=== PATIENT | female | born 1995 | race Caucasian/White ===

== ENCOUNTER 2023-12-17 14:13 | Emergency (ER) | payer BC, SELFPAY ==
[2023-12-17 14:17] VITALS: BP 111/63; PULSE 75; RESP 16; TEMP 36.5; O2SAT 99; BMI 34.1
--- NOTE | 2023-12-17 14:31 | W.ED.ABDPA2 ---
HPI - Abdominal Pain General: Chief Complaint: Abdominal Pain Stated Complaint: RIGHT ABD PAIN Time Seen by Provider: 12/17/23 14:28 History of Present Illness: Patient presents to the ER with complaints of right upper quadrant and left upper quadrant abdominal pain. This radiating into her back. Patient is having nausea vomiting and diarrhea for the last 3 days. The pain just darted today around 130. Patient is sharp stabbing in nature makes the patient feel she needs to vomit and then that she gets lightheaded and feels like she got a pass out. Patient's fidanelle? has similar nausea vomiting for a day or 2 but he is improved currently. Related Data Date of Last Menstrual Period: 12/15/23 Previous Rx's Medication Instructions Recorded ciprofloxacin HCl 500 mg tablet 500 mg PO Q12H #20 tabs 12/17/23 Allergies Allergy/AdvReac Type Severity Reaction Status Date / Time Penicillins Allergy ALGY-Rash Verified 12/17/23 14:24 Review of Systems General: Reports: 10 or more systems reviewed and unremarkable except in HPI and below PFS ED Female Reproductive History: Date of last menstrual period: 12/15/23 Physical Exam Const: COMMON NORMALS: no acute distress, average body habitus, patient oriented x3, no limitations, healthy appearing, alert and well nourished HENMT: COMMON NORMALS: normocephalic, atraumatic, hearing grossly normal bilaterally, external ears normal, Normal external nose present and moist oral mucous membranes HEAD & SCALP: normocephalic and atraumatic NOSE: Normal external nose present EXTERNAL EAR: Yes external ears normal Neck/C-Spine: COMMON NORMALS: no JVD Chest: COMMONS NORMALS: normal inspection of the chest and normal palpation of entire chest wall Resp: COMMON NORMALS: normal respiratory effort, No retractions, No use of accessory muscles and clear to auscultation bilaterally AUSCULTATION: clear to auscultation bilaterally Cardio: COMMON NORMALS: no JVD, regular rate, regular rhythm, S1 normal heart sound present, S2 normal heart sound present, No gallops present (Cardio), No clicks present (Cardio), No murmurs present (Cardio) and No rub (Cardio) RATE: regular rate RHYTHM: regular rhythm HEART SOUNDS: S1 normal heart sound present and S2 normal heart sound present GI: COMMON NORMALS: Normal to inspection, nondistended, normoactive bowel sounds present, Soft to palpation, non-tender, No hepatosplenomegaly present and no masses PALPATION: Yes Soft to palpation and Yes No hepatosplenomegaly present Neuro: COMMON NORMALS: patient oriented x3 SENSORIUM/ORIENTATION: Yes alert Course Vital Signs: Vital signs: Vital Signs Temperature 97.7 F 12/17/23 14:17 Pulse Rate 78 12/17/23 17:05 Respiratory Rate 16 12/17/23 14:17 Blood Pressure 128/98 12/17/23 17:05 Pulse Oximetry 98 12/17/23 17:05 Oxygen Delivery Me thod Room Air 12/17/23 14:17 MDM - Abdominal Pain Medical Decision Making Patient lab work included CBC CMP lipase, urinalysis, hCG, all which was essentially negative urine analysis possibly showed mild urinary tract infection however was not the best collected specimen, CT scan the abdomen pelvis showed no acute findings. Patient was given Toradol in her IV in the ER which helped her pain. Patient be prescribed Cipro and referred back to her family doctor for further evaluation testing. Medical Records I reviewed the patient's medical records. Lab Data I reviewed the patient's lab results. 12/17/23 15:18 12/17/23 15:18 Labs/Radiology: Radiology Impressions Abdomen/Pelvis CT 12/17/23 16:23 IMPRESSION: No acute findings. Laboratory Results WBC 8.46 10^3/uL (3.29-11.43) 12/17/23 15:18 RBC 4.24 10^6/uL (3.85-5.65) 12/17/23 15:18 Hgb 12.30 g/dL (11.27-16.99) 12/17/23 15:18 Hct 39.2 % (36-47) 12/17/23 15:18 MCV 92.5 fl (85-98) 12/17/23 15:18 MCH 29.0 pg (27-33) 12/17/23 15:18 MCHC 31.4 g/dL (30-55) 12/17/23 15:18 RDW 12.8 % (12.1-15.1) 12/17/23 15:18 Plt Count 222 10^3/cmm (157-399) 12/17/23 15:18 MPV 10.1 fL (7.4-10.4) 12/17/23 15:18 Neut % (Auto) 82.2 % 12/17/23 15:18 Lymph % (Auto) 8.2 % 12/17/23 15:18 [place] % (Auto) 7.1 % 12/17/23 15:18 Eos % (Auto) 1.9 % 12/17/23 15:18 Baso % (Auto) 0.5 % 12/17/23 15:18 Neut # (Auto) 6.96 10^3/uL (1.8-7.7) 12/17/23 15:18 Lymph # (Auto) 0.7 10^3/uL (0.8-4.8) L 12/17/23 15:18 [place] # (Auto) 0.6 10^3/uL (0.2-0.9) 12/17/23 15:18 Eos # (Auto) 0.2 10^3/uL (0.0-0.8) 12/17/23 15:18 Baso # (Auto) 0.0 10^3/uL (0.0-0.1) 12/17/23 15:18 Nucleated RBC % (auto) 0 % 12/17/23 15:18 Nucleated RBCs # 0.0 /100WBC 12/17/23 15:18 Sodium 139 mmol/L (136-145) 12/17/23 15:18 Potassium 4.3 mmol/L (3.5-5.1) 12/17/23 15:18 Chloride 104 mmol/L (98-107) 12/17/23 15:18 Carbon Dioxide 23 mmol/L (22-29) 12/17/23 15:18 Anion Gap 16.3 (5-19) 12/17/23 15:18 BUN 18 mg/dL (6-20) 12/17/23 15:18 Creatinine 0.8 mg/dL (0.5-0.9) 12/17/23 15:18 GFR Calculation 86.0 mL/min (90-130) L 12/17/23 15:18 Glucose 87 mg/dL (65-115) 12/17/23 15:18 Calculated Osmolality 289 mOsm/kg (285-295) 12/17/23 15:18 Calcium 8.9 mg/dL (8.5-10.5) 12/17/23 15:18 Magnesium 2.0 mg/dL (1.7-2.3) 12/17/23 15:18 Total Bilirubin 0.4 mg/dL (0.15-1.2) 12/17/23 15:18 AST 39 U/L (0-32) H 12/17/23 15:18 ALT 22 U/L (0-33) 12/17/23 15:18 Alkaline Phosphatase 72 U/L (35-105) 12/17/23 15:18 Total Protein 7.9 g/dL (6.6-8.7) 12/17/23 15:18 Albumin 4.7 g/dL (3.5-5.2) 12/17/23 15:18 Globulin 3.2 g/dL (1.3-4.6) 12/17/23 15:18 Lipase 16 U/L (13-60) 12/17/23 15:18 HCG, Qual Negative (Negative) 12/17/23 15:37 Urine Color Yellow (Yellow) 12/17/23 15:37 Urine Appearance Cloudy (CLEAR) A 12/17/23 15:37 Urine pH 6.0 (5-7) 12/17/23 15:37 Ur Specific [place] 1.030 (1.005-1.030) 12/17/23 15:37 Urine Protein 1+ (Negative) A 12/17/23 15:37 Urine Glucose (UA) Negative (Normal) 12/17/23 15:37 Urine Ketones Trace (Negative) 12/17/23 15:37 Urine Blood 3+ (Negative) A 12/17/23 15:37 Urine Nitrate Negative (Negative) 12/17/23 15:37 Urine Bilirubin Negative (Negative) 12/17/23 15:37 Urine Urobilinogen 1.0 mg/dL (Negative) 12/17/23 15:37 Ur Leukocyte Esterase 1+ (Negative) A 12/17/23 15:37 Urine RBC 15-25 /hpf (0-2) H 12/17/23 15:37 Urine WBC 10-15 /hpf (0-5) H 12/17/23 15:37 Ur Squamous Epith Cells 15-25 /hpf (0-5) H 12/17/23 15:37 Ur Transition Epith Cell 0-4 /hpf 12/17/23 15:37 Ur Renal Epithelial Cell 0-4 /hpf 12/17/23 15:37 Calcium Oxalate Crystal 10-15 /hpf H 12/17/23 15:37 Amorphous Sediment Not Reportable 12/17/23 15:37 Urine Bacteria 2+ /hpf (NONE) H 12/17/23 15:37 Hyaline Casts 0-4 /lpf H 12/17/23 15:37 Urine Mucus 1+ /hpf 12/17/23 15:37 All radiology interpretation(s) finalized by discharge Discharge Plan Discharge Patient Disposition: Home Clinical Impression: Abdominal pain Qualifiers: Abdominal location: upper abdomen, unspecified Qualified Code(s): R10.10 - Upper abdominal pain, unspecified Urinary tract infection Qualifiers: Urinary tract infection type: acute cystitis Hematuria presence: with hematuria Qualified Code(s): N30.01 - Acute cystitis with hematuria Condition: Stable Prescriptions: New ciprofloxacin HCl 500 mg tablet 500 mg PO Q12H Qty: 20 0RF Discharge Orders: Discharge ED (Routine); Ordered 12/17/23 Ordered By: Jamie Brian Patient Instructions: Abdominal Pain (ED), Urinary Tract Infection - Women Activity Restrictions/Additional Instructions: Your evaluation ER that included lab work urinalysis and renal stone protocol CT scan did not show any acute cause of your upper abdominal pain. Your urine did show you may have signs of infection and thus you are prescribed antibiotics. Please follow-up with your family practice physician within next 7 to 10 days for further evaluation and testing Coding Level of Care Code ED [employer] for Shannan Page
[2023-12-17] MEDS: ondansetron 2 mg/ML SDV 2 mL 4 MG IVP (15:22)
[2023-12-17 15:25] LABS: Basophils % 0.5 %; Eosinophils # 0.2 10^3/uL (0.0-0.8); Eosinophils % 1.9 %; Hematocrit 39.2 % (36-47); Lymphocytes # 0.7 10^3/uL (0.8-4.8); Lymphocytes % 8.2 %; Mean Corpuscular HGB Conc 31.4 g/dL (30-55); Mean Corpuscular Volume 92.5 fl (85-98); Mean Platelet Volume 10.1 fL (7.4-10.4); Monocytes # 0.6 10^3/uL (0.2-0.9); Monocytes % 7.1 %; Neutrophils # 6.96 10^3/uL (1.8-7.7); Neutrophils % 82.2 %; Nucleated Red Blood Cells % 0 %; Platelet Count 222 10^3/cmm (157-399); Red Blood Count 4.24 10^6/uL (3.85-5.65); Red Cell Distribution Width 12.8 % (12.1-15.1); White Blood Count 8.46 10^3/uL (3.29-11.43)
[2023-12-17 15:43] LABS: Alanine Aminotransferase 22 U/L (0-33); Albumin Level 4.7 g/dL (3.5-5.2); Alkaline Phosphatase 72 U/L (35-105); Anion Gap 16.3 (5-19); Aspartate Amino Transferase 39 U/L (0-32); Blood Urea Nitrogen 18 mg/dL (6-20); Calcium 8.9 mg/dL (8.5-10.5); Carbon Dioxide 23 mmol/L (22-29); Chloride 104 mmol/L (98-107); Creatinine Clr Calc Pharmacy 119.0526; Globulin 3.2 g/dL (1.3-4.6); Glucose 87 mg/dL (65-115); Lipase 16 U/L (13-60); Osmolality Calculated 289 mOsm/kg (285-295); Potassium 4.3 mmol/L (3.5-5.1); Sodium 139 mmol/L (136-145); Total Bilirubin 0.4 mg/dL (0.15-1.2); Total Protein 7.9 g/dL (6.6-8.7)
[2023-12-17 15:48] LABS: HCG Qualitative Urine. Negative (Negative)
[2023-12-17 16:03] LABS: Bilirubin Urine Negative (Negative); Blood Urine 3+ (Negative); Glucose Urine UA Negative (Normal); Ketones Urine Trace (Negative); Leukocyte Esterase Urine 1+ (Negative); Nitrate Urine Negative (Negative); Protein Urine 1+ (Negative); Urine Appearance Cloudy (CLEAR); Urine Color Yellow (Yellow)
[2023-12-17 16:18] LABS: UA Manual Slide Review YES; UA Slide Review UA Slide Review Perf
[2023-12-17 16:21] LABS: Add Urine Microscopic? YES; Bacteria Urine 2+ /hpf; Mucus Urine 1+ /hpf; RBC Urine 15-25 /hpf (0-2); Renal Epithelial Cells Urine 0-4 /hpf; Squamous Epithelial Cell Urine 15-25 /hpf (0-5); Transitional Epi Cells Urine 0-4 /hpf
[2023-12-17 16:22] LABS: Add Urine Culture? Yes; Hyaline Casts Urine 0-4 /lpf
--- NOTE | 2023-12-17 16:23 | CTR_ITS ---
PROCEDURE INFORMATION: Exam: CT Abdomen And Pelvis Without Contrast Exam date and time: 12/17/2023 4:33 PM Age: 28 years old Clinical indication: Abdominal pain; Flank; Right; Additional info: Upper abd pain, hematuria, TECHNIQUE: Imaging protocol: Computed tomography of the abdomen and pelvis without contrast. Radiation optimization: All CT scans at this facility use at least one of these dose optimization techniques: automated exposure control; mA and/or kV adjustment per patient size (includes targeted exams where dose is matched to clinical indication); or iterative reconstruction. COMPARISON: No relevant prior studies available. RADIATION DOSE METRICS: Total DLP (mGy-cm): 676.66 FINDINGS: Lungs: Lung bases are clear. No pleural effusion. Liver: Normal. No mass. Gallbladder and biliary ducts: The gallbladder has been resected. Pancreas: Normal. No ductal dilation. Spleen: Normal. No splenomegaly. Adrenal glands: Normal. No mass. Kidneys and ureters: Normal. No hydronephrosis. Stomach and bowel: Unremarkable. No obstruction. No mucosal thickening. Appendix: The appendix is clearly identified and is unremarkable. Intraperitoneal space: Unremarkable. No free air. No significant fluid collection. Vasculature: Unremarkable. No abdominal aortic aneurysm. Lymph nodes: Unremarkable. No enlarged lymph nodes. Urinary bladder: Unremarkable as visualized. Reproductive: There is an intrauterine device properly positioned within the uterus. Bones/joints: Unremarkable. No acute fracture. Soft tissues: Unremarkable. CT/CT kidney stone [id number] IMPRESSION: No acute findings.
[2023-12-17] MEDS: ketorolac 30 mg/mL INJ IVP (16:29)
[2023-12-17 17:05] VITALS: BP 128/98; PULSE 78; O2SAT 98
[2023-12-17] MEDS: ciprofloxacin 500 mg Tablet PO (17:17)
[2023-12-17 17:22] VITALS: BP 108/58; PULSE 83; O2SAT 98
== END 2023-12-17 17:25 | disposition home or self-care (01) ==
PROVIDERS: Emergency Provider Emergency Medicine
DX: N30.01 Acute cystitis with hematuria (principal); R10.10 Upper abdominal pain, unspecified
CPT/HCPCS: 74176; 80053; 81001; 81025; 83690; 83735; 85025; 87086; 96374; 96375; 99285; J1885; J2405

== ENCOUNTER 2024-07-18 13:42 | Emergency (ER) | payer OTHER, SELFPAY ==
[2024-07-18 13:47] VITALS: BP 116/73; PULSE 93; RESP 16; TEMP 36.9; O2SAT 100; BMI 36.1
--- NOTE | 2024-07-18 13:48 | ECG_ITS ---
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 Measurements Intervals [place] Rate: 91 P: 10 W[place]: 164 QRS: 40 QRSD: 103 T: 0 QT: 335 QTc: 413 Interpretive Statements SINUS RHYTHM LOW QRS VOLTAGE IN PRECORDIAL LEADS [QRS DEFLECTION < 1.0 mV IN CHEST LEADS] NONSPECIFIC T-WAVE ABNORMALITY No previous ECG available for comparison Electronically Signed On 07-20-2024 11:39:24 CDT by Mario Pearl M.D. [email or web address]
--- NOTE | 2024-07-18 13:48 | XRR_ITS ---
PROCEDURE INFORMATION: Exam: XR Chest Exam date and time: 07/18/2024 2:15 PM Age: 29 years old Clinical indication: Cough and dyspnea; Additional info: Dyspnea/cough TECHNIQUE: Imaging protocol: Radiologic exam of the chest. Views: 1 view. COMPARISON: CT kidney stone [id number] 12/17/2023 4:33 PM FINDINGS: Lungs: Unremarkable. No consolidation. Pleural spaces: Unremarkable. No pleural effusion. No pneumothorax. Heart/Mediastinum: Unremarkable. No cardiomegaly. Bones/joints: Unremarkable. XR/XR chest 1V portable [id number] IMPRESSION: No acute findings.
--- NOTE | 2024-07-18 13:48 | CTR_ITS ---
PROCEDURE INFORMATION: Exam: CT Head Without Contrast Exam date and time: 07/18/2024 2:44 PM Age: 29 years old Clinical indication: Syncope and collapse; Additional info: Syncope, loss of consciousness TECHNIQUE: Imaging protocol: Computed tomography of the head without contrast. Radiation optimization: All CT scans at this facility use at least one of these dose optimization techniques: automated exposure control; mA and/or kV adjustment per patient size (includes targeted exams where dose is matched to clinical indication); or iterative reconstruction. COMPARISON: No relevant prior studies available. RADIATION DOSE METRICS: Total DLP (mGy-cm): 952.28 FINDINGS: Brain: The brain is unremarkable. There is no mass effect or significant white matter disease. There is no acute intracranial hemorrhage. Cerebral ventricles: There is no significant ventricular dilation. The basal cisterns are unremarkable. Paranasal sinuses: There is fluid filling of the left frontal sinus. Paranasal sinuses are otherwise clear. Mastoid air cells: The mastoid air cells are clear. Bones: The skull is unremarkable. Soft tissues: The visible extracranial soft tissues are unremarkable. CT/CT head wo con* [id number] IMPRESSION: 1. No acute intracranial abnormality. 2. Fluid-filled left frontal sinus. Possible acute sinusitis.
--- NOTE | 2024-07-18 14:09 | ED_ITS ---
HPI - Syncope 2 General: Chief Complaint: Syncope Stated Complaint: passed out twice today Time Seen by Provider: 07/18/24 13:47 History of Present Illness: 29-year-old female presents emergency ro om with complaint of syncopal episodes her last several weeks she has had several of these episodes. She has been seen by her PCP and was referred to cardiology in [place]. She denies striking her head. No history of seizures. She states she has a heaviness in her chest get some palpitations and has these episodes. She also noticed some palpitations she states they are not really associated any particular activity or change in posture she can anticipate them. Some episodes she feels like she is going to pass out and the symptoms only last for 2 seconds other times she is completely felt like she is completely lost consciousness she is fully alert aware and alert after these episodes does not have anything that sounds like a postictal phase there is no seizure-like activity she has not had any loss of bowel or bladder control these episodes no recent trauma to the head or trauma to the head associated with these episodes. Associated symptoms: Deny abdominal pain, chest pain or fever(s) Related Data Home Medications ?Medication ?Instructions ?Recorded ?Confirmed cefdinir 300 mg capsule 300 mg PO BID 07/18/2407/18 Allergies Allergy/AdvReac Type Severity Reaction Status Date / Time Penicillins Allergy ALGY-Rash Verified 07/18/24 13:47 Review of Systems 2 Const: Denies: fever(s) or chills Card: Reports: palpitations; Denies: chest pain Resp: Denies: dyspnea GI: Denies: abdominal pain : Denies: dysuria, urinary frequency or urinary urgency Musc: Denies: neck pain or back pain Skin/Breast: Denies: rash Physical Exam 2 Const: COMMON NORMALS: no acute distress GENERAL APPEARANCE: cooperative and comfortable ORIENTATION/CONSCIOUSNESS: Yes awake, Yes oriented to person, Yes oriented to place and Yes oriented to time HENMT: COMMON NORMALS: normocephalic, atraumatic and hearing grossly normal bilaterally HEAD & SCALP: normocephalic and atraumatic Resp: COMMON NORMALS: normal respiratory effort, No retractions, No use of accessory muscles and clear to auscultation bilaterally AUSCULTATION: clear to auscultation bilaterally Cardio: COMMON NORMALS: regular rate, regular rhythm and No murmurs present (Cardio) RATE: regular rate RHYTHM: regular rhythm GI: COMMON NORMALS: Soft to palpation and No hepatosplenomegaly present A USCULTATION: Yes normoactive bowel sounds PALPATION: Yes Soft to palpation, No Tenderness to palpation present (GI), No Guarding due to palpation present (GI) and Yes No hepatosplenomegaly present Extremity: COMMON NORMALS: normal to inspection, capillary refill normal, no clubbing, cyanosis or edema, no calf tenderness and no pedal edema Neuro: SENSORIUM/ORIENTATION: Yes oriented to person, Yes oriented to place and Yes oriented to time Skin: COMMON NORMALS: no rashes or lesions noted GENERAL SKIN EXAM: no rashes or lesions noted Course 2 Vital Signs: Vital signs: Vital Signs Temperature 98.4 F 07/18/24 13:47 Pulse Rate 98 07/18/24 17:09 Respiratory Rate 16 07/18/24 13:47 Blood Pressure 115/81 07/18/24 17:09 Pulse Oximetry 100 07/18/24 17:09 Oxygen Delivery Me thod Room Air 07/18/24 17:01 MDM - Syncope Medical Decision Making Labs and imaging reviewed. We did do a CTA there was no sign of PE vital signs otherwise stable. No emergent acute findings at this time. 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 Follow-up with cardiology evaluation as scheduled. Medical Records I reviewed the patient's medical records. Lab Data I reviewed the patient's lab results. 07/18/24 14:11 07/18/24 14:11 Radiology Impressions Chest X-Ray 07/18/24 13:48 IMPRESSION: No acute findings. Head CT 07/18/24 13:48 IMPRESSION: 1. No acute intracranial abnormality. 2. Fluid-filled left frontal sinus. Possible acute sinusitis. Chest CTA 07/18/24 14:43 IMPRESSION: No acute findings. Laboratory Results WBC 7.89 10^3/uL (3.29-11.43) 07/18/24 14:11 RBC 3.91 10^6/uL (3.85-5.65) 07/18/24 14:11 Hgb 11.30 g/dL (11.27-16.99) 07/18/24 14:11 Hct 36.1 % (36-47) 07/18/24 14:11 MCV 92.3 fl (85-98) 07/18/24 14:11 MCH 28.9 pg (27-33) 07/18/24 14:11 MCHC 31.3 g/dL (30-55) 07/18/24 14:11 RDW 12.8 % (12.1-15.1) 07/18/24 14:11 Plt Count 271 10^3/cmm (157-399) 07/18/24 14:11 MPV 10.0 fL (7.4-10.4) 07/18/24 14:11 Neut % (Auto) 66.4 % 07/18/24 14:11 Lymph % (Auto) 22.2 % 07/18/24 14:11 [place] % (Auto) 6.8 % 07/18/24 14:11 Eos % (Auto) 3.9 % 07/18/24 14:11 Baso % (Auto) 0.6 % 07/18/24 14:11 Neut # (Auto) 5.23 10^3/uL (1.8-7.7) 07/18/24 14:11 Lymph # (Auto) 1.8 10^3/uL (0.8-4.8) 07/18/24 14:11 [place] # (Auto) 0.5 10^3/uL (0.2-0.9) 07/18/24 14:11 Eos # (Auto) 0.3 10^3/uL (0.0-0.8) 07/18/24 14:11 Baso # (Auto) 0.1 10^3/uL (0.0-0.1) 07/18/24 14:11 Nucleated RBC % (auto) 0 % 07/18/24 14:11 Nucleated RBCs # 0.0 /100WBC 07/18/24 14:11 D-Dimer 0.61 ug/mLFEU (0-0.59) H 07/18/24 14:11 Sodium 138 mmol/L (136-145) 07/18/24 14:11 Potassium 4.0 mmol/L (3.5-5.1) 07/18/24 14:11 Chloride 105 mmol/L (98-107) 07/18/24 14:11 Carbon Dioxide 24 mmol/L (22-29) 07/18/24 14:11 Anion Gap 13.0 (5-19) 07/18/24 14:11 BUN 15 mg/dL (6-20) 07/18/24 14:11 Creatinine 0.7 mg/dL (0.5-0.9) 07/18/24 14:11 GFR Calculation 99.6 mL/min (90-130) 07/18/24 14:11 Glucose 74 mg/dL (65-115) 07/18/24 14:11 Calculated Osmolality 285 mOsm/kg (285-295) 07/18/24 14:11 Calcium 9.3 mg/dL (8.5-10.5) 07/18/24 14:11 Total Bilirubin 0.3 mg/dL (0.15-1.2) 07/18/24 14:11 AST 14 U/L (0-32) 07/18/24 14:11 ALT 17 U/L (0-33) 07/18/24 14:11 Alkaline Phosphatase 65 U/L (35-105) 07/18/24 14:11 Total Protein 7.7 g/dL (6.6-8.7) 07/18/24 14:11 Albumin 4.3 g/dL (3.5-5.2) 07/18/24 14:11 Globulin 3.4 g/dL (1.3-4.6) 07/18/24 14:11 HCG, Qual Negative (Negative) 07/18/24 14:11 Urine Color Yellow (Yellow) 07/18/24 14:10 Urine Appearance Clear (CLEAR) 07/18/24 14:10 Urine pH 7.0 (5-7) 07/18/24 14:10 Ur Specific [place] 1.017 (1.005-1.030) 07/18/24 14:10 Urine Protein Negative (Negative) 07/18/24 14:10 Urine Glucose (UA) Negative (Normal) 07/18/24 14:10 Urine Ketones Negative (Negative) 07/18/24 14:10 Urine Blood 2+ (Negative) A 07/18/24 14:10 Urine Nitrate Negative (Negative) 07/18/24 14:10 Urine Bilirubin Negative (Negative) 07/18/24 14:10 Urine Urobilinogen 1.0 mg/dL (Negative) 07/18/24 14:10 Ur Leukocyte Esterase Negative (Negative) 07/18/24 14:10 Urine RBC 21-50 /hpf (0-2) H 07/18/24 14:10 Urine WBC 0-5 /hpf (0-5) 07/18/24 14:10 Ur Squamous Epith Cells 6-10 /hpf (0-5) 07/18/24 14:10 Amorphous Sediment Not Reportable 07/18/24 14:10 Urine Bacteria None seen /hpf (NONE) 07/18/24 14:10 Hyaline Casts 0.81 /lpf 07/18/24 14:10 All radiology interpretation(s) finalized by discharge Discharge Plan Discharge Patient Disposition: Home Clinical Impression: Syncope Condition: Stable Prescriptions: No Action cefdinir 300 mg capsule 300 mg PO BID Discharge Orders: Discharge ED (Routine); Ordered 07/18/24 Ordered By: Charanjit Zhang Discharge Diet: Usual diet Discharge Activity: Limit activity as instructed Patient Instructions: Opioid Safety, Pain Management Activity Restrictions/Additional Instructions: Thank you for choosing [facility] for your healthcare needs today. It is very important that you follow up as instructed or that you return to the Emergency Department should you have concerns or if your condition changes or worsens in any way. You were seen in the emergency room with concerns of syncopal episodes been going on for several weeks. Evaluation in the emergency room was negative for any causes you should keep the appointment that your primary care doctor has made with cardiology for further evaluation. 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 You should discuss your situation with your supervisors. Would recommend that you not work in the environment where if you have a syncopal episode you may be a risk. Print Language: Romanian Coding Level of Care Code ED [employer] for Shannan Page
[2024-07-18 14:20] LABS: Basophils # 0.1 10^3/uL (0.0-0.1); Basophils % 0.6 %; Eosinophils # 0.3 10^3/uL (0.0-0.8); Eosinophils % 3.9 %; Hematocrit 36.1 % (36-47); Lymphocytes # 1.8 10^3/uL (0.8-4.8); Lymphocytes % 22.2 %; Mean Corpuscular HGB Conc 31.3 g/dL (30-55); Mean Corpuscular Hemoglobin 28.9 pg (27-33); Mean Corpuscular Volume 92.3 fl (85-98); Monocytes # 0.5 10^3/uL (0.2-0.9); Monocytes % 6.8 %; Neutrophils # 5.23 10^3/uL (1.8-7.7); Neutrophils % 66.4 %; Nucleated Red Blood Cells % 0 %; Platelet Count 271 10^3/cmm (157-399); Red Blood Count 3.91 10^6/uL (3.85-5.65); Red Cell Distribution Width 12.8 % (12.1-15.1); White Blood Count 7.89 10^3/uL (3.29-11.43)
[2024-07-18 14:25] VITALS: BP 126/67; BP 127/78; BP 131/75; PULSE 100; PULSE 108; PULSE 88
[2024-07-18 14:25] LABS: HCG, Serum Qual Negative (Negative)
[2024-07-18 14:26] LABS: Bilirubin Urine Negative (Negative); Blood Urine 2+ (Negative); Glucose Urine UA Negative (Normal); Ketones Urine Negative (Negative); Leukocyte Esterase Urine Negative (Negative); Nitrate Urine Negative (Negative); Protein Urine Negative (Negative); Specific Gravity, Urine 1.017 (1.005-1.030); Urine Appearance Clear (CLEAR); Urine Color Yellow (Yellow)
[2024-07-18 14:32] LABS: D Dimer 0.61 ug/mLFEU (0-0.59)
[2024-07-18 14:33] LABS: Alanine Aminotransferase 17 U/L (0-33); Albumin Level 4.3 g/dL (3.5-5.2); Alkaline Phosphatase 65 U/L (35-105); Aspartate Amino Transferase 14 U/L (0-32); Blood Urea Nitrogen 15 mg/dL (6-20); Calcium 9.3 mg/dL (8.5-10.5); Carbon Dioxide 24 mmol/L (22-29); Chloride 105 mmol/L (98-107); Creatinine Clr Calc Pharmacy 138.9693; Globulin 3.4 g/dL (1.3-4.6); Glomerular Filtration Rate 99.6 mL/min (90-130); Glucose 74 mg/dL (65-115); Osmolality Calculated 285 mOsm/kg (285-295); Sodium 138 mmol/L (136-145); Total Bilirubin 0.3 mg/dL (0.15-1.2); Total Protein 7.7 g/dL (6.6-8.7)
[2024-07-18 14:34] LABS: Add Urine Microscopic? YES; Bacteria Urine None Seen /hpf; Hyaline Casts Urine 0.81 /lpf; RBC Urine 21-50 /hpf (0-2); WBC Urine 0-5 /hpf (0-5)
[2024-07-18 14:38] LABS: Add Urine Culture? Yes
--- NOTE | 2024-07-18 14:43 | CTR_ITS ---
PROCEDURE INFORMATION: Exam: CTA Chest With Contrast Exam date and time: 07/18/2024 2:54 PM Age: 29 years old Clinical indication: Abnormal findings; Abnormal diagnostic tests; Elevated d-dimer; Additional info: Syncope elevated d-dimer TECHNIQUE: Imaging protocol: Computed tomographic angiography of the chest with contrast. Exam focused on the arteries. 3D rendering (Not supervised by radiologist): MIP and/or 3D reconstructed images were created by the technologist. Radiation optimization: All CT scans at this facility use at least one of these dose optimization techniques: automated exposure control; mA and/or kV adjustment per patient size (includes targeted exams where dose is matched to clinical indication); or iterative reconstruction. Contrast material: OMNIPAQUE 350; Contrast volume: 70 ml; Contrast route: INTRAVENOUS (IV); COMPARISON: CR (CHEST, ) 07/18/2024 2:15 PM RADIATION DOSE METRICS: Total DLP (mGy-cm): 3621.66 FINDINGS: Pulmonary arteries: Normal. No pulmonary emboli. Aorta: Unremarkable. No aortic aneurysm. No aortic dissection. Lungs: Unremarkable. No consolidation. No masses. Pleural spaces: Unremarkable. No pneumothorax. No pleural effusion. Heart: Unremarkable. No cardiomegaly. No pericardial effusion. Lymph nodes: Unremarkable. No enlarged lymph nodes. Bones/joints: Unremarkable. No acute fracture. Soft tissues: Unremarkable. CT/CT angio chest PE protcl [id number] IMPRESSION: No acute findings.
--- NOTE | 2024-07-18 14:43 | PC.PHAR ---
Patient states she takes Sertraline but hasn't had it refilled . I don't see any in her external med list.
[2024-07-18] MEDS: iohexol 350 mg/mL 500 mL Btl (per mL) IV (14:57)
[2024-07-18 17:01] VITALS: BP 115/81; PULSE 90; O2SAT 100
[2024-07-18 17:09] VITALS: BP 115/81; PULSE 98; O2SAT 100
== END 2024-07-18 17:10 | disposition home or self-care (01) ==
PROVIDERS: Emergency Provider Family Medicine
DX: R55 Syncope and collapse (principal)
CPT/HCPCS: 36415; 70450; 71045; 71275; 80053; 81001; 84703; 85025; 85378; 87086; 93005; 99285